=== PATIENT | male | born 1960 | race Caucasian/White ===

== ENCOUNTER 2018-06-25 11:25 | Day surgery (SDC) | payer OTHER ==
[2018-06-25] MEDS ORDERED: MIDAZOLAM 1 MG/ML 2 ML INJ (14:15)
[2018-06-25] MEDS ORDERED: FENTAnyl 50 MCG/ML VIAL (14:15)
== END 2018-06-25 14:25 | disposition home or self-care (01) ==
LOC: GIL 11:25
DX: Z12.11 Encounter for screening for malignant neoplasm of colon (principal); K64.8 Other hemorrhoids
CPT/HCPCS: 45378